=== PATIENT | female | born 1965 | race Caucasian/White ===

== ENCOUNTER → 2016-09-09 | Outpatient (CLI) | payer BC ==
[~2016-09-09] MED LIST: SEASONIQUE1 TAB PO; ZITHROMAX250 M1 PO
== END ==
LOC: COL.RAD 16:30
DX: H57.11 Ocular pain, right eye (principal)

== ENCOUNTER → 2018-07-20 | Outpatient (CLI) | payer BC | LOC: MC.RAD 10:00 | DX: Z12.31 Encounter for screening mammogram for malignant neoplasm of breast (principal); N64.89 Other specified disorders of breast ==

== ENCOUNTER → 2018-07-22 | Outpatient (CLI) | payer BC | LOC: MC.RAD 10:00 | DX: N64.89 Other specified disorders of breast (principal) | CPT/HCPCS: G0279 ==

== ENCOUNTER 2018-09-17 18:35 | Emergency (ER) | payer BC ==
[~2018-09-17] VITALS: Ht 165.1 cm; Wt 64.1 kg
[2018-09-17 18:38] VITALS: BP 128/78; TEMP 97.9
[2018-09-17] MEDS ORDERED: NORCO 325 MG-51 TAB PO (19:05)
[2018-09-17 20:08] VITALS: PULSE 65
== END 2018-09-17 20:11 | disposition home or self-care (01) ==
LOC: COL.ER 18:35
DX: T25.212A Burn of second degree of left ankle, initial encounter (principal); T25.222A Burn of second degree of left foot, initial encounter; T25.211A Burn of second degree of right ankle, initial encounter; T25.221A Burn of second degree of right foot, initial encounter; T20.10XA Burn of first degree of head, face, and neck, unspecified site, initial encounter; X08.8XXA Exposure to other specified smoke, fire and flames, initial encounter; Y92.009 Unspecified place in unspecified non-institutional (private) residence as the place of occurrence of the external cause

== ENCOUNTER → 2019-08-21 | Outpatient (CLI) | payer BC ==
[~2019-08-21] MED LIST changes: +NORCO 325 MG-51 TAB PO
== END ==
LOC: MC.RAD 09:12
DX: Z12.31 Encounter for screening mammogram for malignant neoplasm of breast (principal)

== ENCOUNTER → 2021-04-07 | Outpatient (CLI) | payer BC | LOC: MC.RAD 09:15 | DX: Z12.31 Encounter for screening mammogram for malignant neoplasm of breast (principal) ==